=== PATIENT | female | born 1985 | race Caucasian/White ===

== ENCOUNTER 2017-04-17 23:33 | Inpatient (IN) | payer OTHER ==
[2017-04-18] MEDS ORDERED: Nalbuphine* 20 MG/ML 1 ML VIAL IV PRN (03:24)
[2017-04-18] MEDS ORDERED: Promethazine INJ(RESTRICTED)* 25 MG/ML 1 ML VIAL IM ONE (03:30)
[2017-04-18] MEDS ORDERED: OXYTOCIN* 10 UNITS/ML 1 ML VIAL ONE (09:12)
[2017-04-18] MEDS ORDERED: Ibuprofen TAB* 600 MG ONE (09:59)
[2017-04-18] MEDS ORDERED: Witch Hazel PAD* JAR ONE (09:59)
[2017-04-18] MEDS ORDERED: Dibucaine 1% 28.35 GM TUBE ONE (09:59)
[2017-04-18] MEDS ORDERED: Dibucaine 1% 28.35 GM TUBE PR PRN (10:14)
[2017-04-18] MEDS ORDERED: Witch Hazel PAD* JAR TOPICAL PRN (10:14)
[2017-04-18] MEDS ORDERED: Acetaminophen TAB* 325 MG PO PRN (10:14)
[2017-04-18] MEDS ORDERED: Glycerin ADULT SUPP PR PRN (10:14)
[2017-04-18] MEDS ORDERED: Ammonia Inhalant* 1 EA AMP ONE ×2 (11:28→15:42)
[2017-04-18] MEDS ORDERED: Simethicone TAB* 80 MG TAB.CHEW PO SCH (12:30)
[2017-04-18] MEDS: Ibuprofen TAB* 600 MG PO PRN ×2 (16:07→22:44)
[2017-04-18] MEDS: Docusate CAP* 100 MG PO SCH ×2 (16:07→20:38)
[2017-04-19] MEDS: Docusate CAP* 100 MG PO SCH ×3 (08:55→21:11)
[2017-04-19] MEDS: Ibuprofen TAB* 600 MG PO PRN ×3 (08:56→23:57)
[2017-04-19 08:57] LABS: ABS Basophils 0 10^3/ul (0-0.2); ABS Eosinophils 0.1 10^3/ul (0-0.6); ABS Lymphocytes 2.1 10^3/ul (1.0-4.8); ABS Monocytes 0.6 10^3/ul (0-0.8); ABS Neutrophils 6.2 10^3/ul (1.5-7.7); ABS Nucleated RBC 0.01 10^3/ul; Eosinophil % 1.1 % (0-6); Hematocrit 29 % (35-47); Hemoglobin 9.1 g/dl (12.0-16.0); Mean Corpuscular HGB Conc 31 g/dl (31-36); Mean Corpuscular Hemoglobin 24 pg (27-31); Mean Corpuscular Volume 76 fL (80-97); Mean Platelet Volume 8 um3 (7.4-10.4); Nucleated Red Blood Cells % 0.1; Platelet Count 201 10^3/ul (150-450); Red Blood Count 3.86 10^6/ul (4.0-5.4); Red Cell Distribution Width 22 % (10.5-15)
[2017-04-19] MEDS: Ferrous Gluconate TAB* 324 MG TAB PO SCH ×2 (09:00→21:12)
[2017-04-20] MEDS: Ibuprofen TAB* 600 MG PO PRN (05:56)
[2017-04-20 08:12] VITALS: BP 96/77
[2017-04-20] MEDS ORDERED: PRENATAL VITAMIN PO SCH (09:00)
[2017-04-20] MEDS ORDERED: IRON COMPLEX PO SCH (09:00)
== END 2017-04-20 10:15 | disposition home or self-care (01) | DRG 775 ==
LOC: MCHOBOUT 23:33 → MCHOB 04-18 07:43
PROVIDERS: ADMIT Obstetrics & Gynecology; ATTEND Obstetrics & Gynecology
PROC: 10D07Z6 Extraction of Products of Conception, Vacuum, Via Natural or Artificial Opening (ICD-10-PCS; principal; 2017-04-18)
PROC: 0W8NXZZ Division of Female Perineum, External Approach (ICD-10-PCS; 2017-04-18)
DX: O48.0 Post-term pregnancy (principal); D64.9 Anemia, unspecified; O69.81X0 Labor and delivery complicated by cord around neck, without compression, not applicable or unspecified; O77.0 Labor and delivery complicated by meconium in amniotic fluid; O90.81 Anemia of the puerperium; Z3A.41 41 weeks gestation of pregnancy; Z37.0 Single live birth
CPT/HCPCS: 36415; 85025; A9270-GY; J2300; J2550; J2590

== ENCOUNTER 2018-11-14 11:23 | Inpatient (IN) | payer MEDICAID ==
[2018-11-14] MEDS ORDERED: Buffered Lidocaine 1% SYRIN* 1 ML/SYRINGE INTRADERM ONE (12:55)
[2018-11-14] MEDS ORDERED: Lactated Ringers 1000 ML Bag* 1,000 ML IV ONE ×2 (12:55→15:56)
[2018-11-14] MEDS ORDERED: Lactated Ringers 1000 ML Bag* 1,000 ML IV SCH ×4 (13:00→21:00)
--- NOTE | 2018-11-14 13:07 | HP ---
General Information - Reason for Visit Pt presents with ctx that have been intermittent until this AM, now about every 4-6 min. No other complaints. Has declined induction to this point due to congregational reasons. - General Information Maternal Age: 33 Grav: 3 Para: 2 SAB: 0 IEA: 0 Estimated Due Date: 11/07/18 Determined By: LMP Gestational Age in Weeks/Days: 41+0 Maternal Blood Type and Rh: A Positive - Results this Serology/RPR Result: Non-Reactive Rubella Result: Immune HBsAg Result: Negative HIV Result: Negative GBS Culture Result: Negative Past Medical History Delivery History: Hx Complicated Vaginal Delivery - #1 shoulder dystocia, #2 vacuum delivery due to deep variable decels Pertinent Past Medical History: See Records - none Pertinent Past Surgical History: None Pertinent Family History: See Records - Antepartal Records Antepartal Records: Reviewed, Complicated by: - history, above Review of Systems Constitutional: Uncomfortable - with ctx CV Complaint: No Respiratory: Shortness of Breath: No Gastrointestinal: No Nausea/Vomiting, Normal Bowel Movement Genitourinary: No Dysuria, No Bleeding, No Leaking Fluid Musculoskeletal: Contractions Neurological: No Headache Movement: Normal Exam Allergies/Adverse Reactions: Allergies No Known Allergies Allergy (Verified 04/18/17 00:58) normal, afebrile - Measurements Height: 4 ft 10 in Weight: 121 lb Weight in lbs: 121.282197 Body Mass Index (BMI): 25.2 Pre- Weight: 97 lb Weight Gained This : 24 lbs and 0 ozs - Exam Breast: Breast Exam Deferred Extremities: No Edema Heart: Normal Rhythm/Heart Sounds HEENT: No Significant Findings Lungs: Clear Bilaterally Rectal: Rectal Exam Deferred - Abdominal Exam Abdomen Exam: Non-Tender, Fundal Height Consistent with Dates - Ultrasound/Biophysical Profile Ultrasound Status: Not Done Targeted Exam Findings Estimated Weight: 7.5 lbs Cervical Exam: 4cm Effacement: 80% Station: -1 Presenting Part: Vertex Membrane Status: Intact Bleeding/Discharge: None EFM Findings - External Monitor Findings Baseline Heart Rate: 140 External Monitor Findings: Accelerations Present, No Pattern of Variable or Late Decelerations, Variability Moderate, Baseline Stable Contractions: Regular, Moderate Contraction Frequency: Q4-5 Assessment/Plan - Assessment 41 wks in early labor, very reassuring HR. Admit for delivery. Discussed pain mgmt options, and pt will consider. Willing to have IV placed. Will try bath for now. - Obstetrical Risk Factors Obstetrical Risk Factors: Post-Dates - Plan Plan: Admit - Anticipate Vaginal Delivery - Date/Time of Admission Date of Admission: 11/14/18 Time of Admission: 12:45
[2018-11-14 13:21] LABS: ABS Eosinophils 0.1 10^3/ul (0-0.6); ABS Monocytes 0.5 10^3/ul (0-0.8); ABS Neutrophils 5.9 10^3/ul (1.5-7.7); Eosinophil % 0.8 %; Hematocrit 33 % (35-47); Hemoglobin 10.5 g/dL (12.0-16.0); Lymphocyte % 23.3 %; Mean Corpuscular HGB Conc 32 g/dL (31-36); Mean Corpuscular Hemoglobin 25 pg (27-31); Mean Corpuscular Volume 77 fL (80-97); Mean Platelet Volume 8.7 fL (7.4-10.4); Nucleated Red Blood Cells % 0.1; Platelet Count 267 10^3/uL (150-450); Red Blood Count 4.27 10^6 /uL (3.70-4.87); Red Cell Distribution Width 22 % (10-15); White Blood Count 8.4 10^3/uL (3.5-10.8)
[2018-11-14 13:38] LABS: Urine Benzodiazepine Screen None Detected (None Detect); Urine Opiates Screen None Detected (None Detect)
[2018-11-14] MEDS ORDERED: OBEPIDURAL* 250 ML EPIDURAL ONE (14:50)
[2018-11-14] MEDS ORDERED: Sodium Citrate/Citric Acid* 15 ML UDC PO PRN (15:56)
[2018-11-14] MEDS ORDERED: Famotidine TAB* 20 MG PO PRN (15:56)
[2018-11-14] MEDS ORDERED: Lactated Ringers 1000 ML Bag* 500 ML IV PRN ×2 (15:56)
[2018-11-14] MEDS ORDERED: Phenylephrine 40 MCG/ML SYRINGE IV PUSH PRN ×2 (15:56)
[2018-11-14] MEDS ORDERED: OBEPIDURAL* 250 ML EPIDURAL SCH (16:00)
[2018-11-14] MEDS ORDERED: Oxytocin in LR* 20 UNITS/1,000 ML BAG IVPB ONE (20:26)
[2018-11-14] MEDS ORDERED: Methylergonovine INJ* 0.2 MG/ML 1ML AMP ONE (20:37)
[2018-11-14] MEDS ORDERED: Glycerin ADULT SUPP PR PRN (20:55)
[2018-11-14] MEDS ORDERED: Dibucaine 1% 28.35 GM TUBE PR PRN (20:55)
[2018-11-14] MEDS ORDERED: Methylergonovine INJ* 0.2 MG/ML 1ML AMP IM ONE (20:55)
[2018-11-14] MEDS ORDERED: Witch Hazel PAD* JAR TOPICAL PRN (20:55)
[2018-11-14] MEDS ORDERED: Oxytocin in LR* 20 UNITS/1,000 ML BAG IVPB SCH (21:00)
--- NOTE | 2018-11-14 21:21 | PROCNOTE ---
[facility]: Delivery Note - Delivery A Date of : 11/14/18 Time of : 20:24 Sex: Male Weight at : 8 lb 11 oz Score 1 Minute: 9 Score 5 Minutes: 9 Gestational Age in Weeks and Days at Delivery: 41 Weeks and 0 Days Delivery Method: Spontaneous Vaginal Labor: Spontaneous Did Patient attempt ?: N/A, No Previous Amniotic Fluid: Meconium Estimated Blood Loss: 700 Anesthesia/Analgesia: CEI for Labor Delivered By: Richard Liu - Nursery Level of Nursery: Regular/Bedside - Perineum Perineal Injury: Perineal Laceration, 2nd Degree Perineal Repair: By Delivering Practioner - Events Delivery Events of Note: Pitocin Only After Delivery, Post- Bleeding - Meds Given - Additional Delivery Notes Additional Delivery Notes: Pt presented at 41 wks in labor, 4cm dilated. Received an epidural which worked well. She progressed well to C/C/+1 and began pushing. She pushed effectively for about 30 min to deliver the head in a controlled fashion OA. Posterior shoulder was difficult to deliver, so anterior arm was delivered. Single nuchal cord reduced after delivery. IV pitocin started after cord clamped. Intact placenta delivered spontaneously. 2nd degree perineal lac injected with lidocaine and then repaired with 3-0 Vicryl Rapide. Pt with intermittent bleeding despite fundal massage. IM methergine given. After repair, bleeding started again, so brief manual sweep of the uterus removed a moderate amt of firm clot. Bleeding was then minimal. Single dose of IV Ancef ordered.
[2018-11-14] MEDS ORDERED: ceFAZolin 1 GM ADVAN(*) 1 GM in NS 0.9% 50 ML* 50 ML IVPB ONE (21:30)
[2018-11-14] MEDS ORDERED: Lidocaine 1% INJ* 10 MG/ML 30 ML SDV ONE (21:30)
[2018-11-14] MEDS ORDERED: Ammonia Inhalant* 1 EA AMP ONE (22:09)
[2018-11-14] MEDS: Simethicone TAB* 80 MG TAB.CHEW PO SCH (23:38)
[2018-11-14] MEDS: Docusate CAP* 100 MG PO SCH (23:38)
[2018-11-14] MEDS: Ibuprofen TAB* 600 MG PO PRN (23:40)
[2018-11-15] MEDS: Ibuprofen TAB* 600 MG PO PRN ×3 (05:36→19:33)
[2018-11-15 06:12] LABS: ABS Basophils 0.1 10^3/ul (0-0.2); ABS Lymphocytes 1.8 10^3/ul (1.0-4.8); ABS Monocytes 0.7 10^3/ul (0-0.8); ABS Neutrophils 7.3 10^3/ul (1.5-7.7); Eosinophil % 0.4 %; Hematocrit 27 % (35-47); Hemoglobin 8.8 g/dL (12.0-16.0); Lymphocyte % 18.2 %; Mean Corpuscular HGB Conc 32 g/dL (31-36); Mean Corpuscular Hemoglobin 25 pg (27-31); Mean Corpuscular Volume 77 fL (80-97); Mean Platelet Volume 8.2 fL (7.4-10.4); Platelet Count 216 10^3/uL (150-450); Red Blood Count 3.55 10^6 /uL (3.70-4.87); Red Cell Distribution Width 22 % (10-15)
[2018-11-15] MEDS ORDERED: Ferrous Gluconate TAB* 324 MG TAB PO SCH (09:00)
[2018-11-15] MEDS: Docusate CAP* 100 MG PO SCH (13:43)
[2018-11-15] MEDS: Acetaminophen TAB* 325 MG PO PRN ×2 (16:10→20:44)
[2018-11-15] MEDS: Docusate LIQ* 100 MG/10 ML UDC PO SCH ×2 (16:42→22:36)
[2018-11-15] MEDS: FERROUS FUMARATE PO SCH (20:46)
[2018-11-15] MEDS ORDERED: oxyCODONE/Acetamin 5/325 MG* TAB PO PRN (21:11)
[2018-11-16] MEDS: Acetaminophen TAB* 325 MG PO PRN ×3 (00:16→11:29)
[2018-11-16] MEDS: Ibuprofen TAB* 600 MG PO PRN ×2 (04:39→11:29)
[2018-11-16] MEDS: Simethicone TAB* 80 MG TAB.CHEW PO SCH (07:36)
[2018-11-16] MEDS: Docusate LIQ* 100 MG/10 ML UDC PO SCH (09:36)
[2018-11-16 09:46] VITALS: BP 88/58
[2018-11-16] MEDS: FERROUS FUMARATE PO SCH (11:31)
== END 2018-11-16 14:40 | disposition home or self-care (01) | DRG 560 ==
LOC: MCHOBOUT 11:23 → MCHOB 12:50
PROVIDERS: ADMIT Obstetrics & Gynecology; ATTEND Obstetrics & Gynecology
PROC: 10E0XZZ Delivery of Products of Conception, External Approach (ICD-10-PCS; principal; 2018-11-14)
PROC: 10907ZC Drainage of Amniotic Fluid, Therapeutic from Products of Conception, Via Natural or Artificial Opening (ICD-10-PCS; 2018-11-14)
PROC: 4A1HXCZ Monitoring of Products of Conception, Cardiac Rate, External Approach (ICD-10-PCS; 2018-11-14)
PROC: 0KQM0ZZ Repair Perineum Muscle, Open Approach (ICD-10-PCS; 2018-11-14)
PROC: 0UC97ZZ Extirpation of Matter from Uterus, Via Natural or Artificial Opening (ICD-10-PCS; 2018-11-14)
DX: O48.0 Post-term pregnancy (principal); O72.1 Other immediate postpartum hemorrhage; Z37.0 Single live birth; O77.0 Labor and delivery complicated by meconium in amniotic fluid; O90.81 Anemia of the puerperium; O69.81X0 Labor and delivery complicated by cord around neck, without compression, not applicable or unspecified; O70.1 Second degree perineal laceration during delivery; Z3A.41 41 weeks gestation of pregnancy
CPT/HCPCS: 36415; 80307; 85025; 86850; 86900; 86901; A9270-GY; J0690; J2210